=== PATIENT | female | born 1950 | race Caucasian/White ===

== ENCOUNTER → 2017-01-20 | Outpatient (CLI) | payer MEDICARE ==
--- NOTE | 2017-01-20 10:57 | BD ---
EXAMINATION TYPE: MG DEXA axial skeleton. DATE OF EXAM: 01/20/2017 10:48 AM COMPARISON: NONE CLINICAL HISTORY: Height: 65 Weight: 182.5 FRAX RISK QUESTIONS: Alcohol (3 or more units per day): NO Family History (Parent hip fracture): NO Glucocorticoids (More than 3mos): NO (Ex: prednisone, prednisolone, methylprednisolone, dexamethasone, and hydrocortisone). History of Fracture in Adulthood: YES Secondary Osteoporosis: 1. Type 1 Diabetes: NO 2. Hyperthyroidism: NO 3. Menopause before 45: NO 4. Malnutrition: NO 5. Chronic liver disease: NO Rheumatoid Arthritis: NO Current Tobacco Use: NO RISK FACTORS HISTORY OF: Hip Fracture (Right/Left): NO Spine Fracture: NO History of Wrist Fracture: NO Surgery to Spine/Hip(right/left)/Wrist (right/left): NO Family History of Osteoporosis: NO Active: YES Diet low in dairy products/other sources of calcium: YES Postmenopausal woman: AGE 51 Lost more than 2 inches in height since high school: NO Frequent falls: NO Poor Health: NO Adrenal Insufficiency: NO MEDICATIONS: ZESTOROL Thyroid Medications: SYNTHROID How Lon YEARS Additional History: EXAM MEASUREMENTS: Bone mineral densitometry was performed using the [employer] System. Bone mineral density as measured about the Lumbar spine is: ----- L1-L4(G/cm2): 1.086 T Score Values are as follows: ----- L2: -1.1 ----- L3: -0.9 ----- L4: -0.4 ----- L1-L4: -0.8 Bone mineral density has: DECREASED -6.7 % since study of: 05.13.2004 Bone mineral density about the R hip (g/cm2): 0.911 Bone mineral density about the L hip (g/cm2): 0.914 T Score values are as follows: -----R Neck: -0.9 -----L Neck: -0.9 -----R Intertrochanter: -1.9 -----L Intertrochanter: -1.2 Bone mineral density has: DECREASED -9.8 % since study of: 05.13.2004 IMPRESSION: OSTEOPENIA. MAJOR OSTEOPOROTIC FRACTURE RISK: 7.7% HIP FRACTURE RISK: 0.5% NOTE: T-SCORE=SD OF THE YOUNG ADULT MEAN.
--- NOTE | 2017-01-24 08:10 | MM ---
Reason for exam: screening (asymptomatic). Last mammogram was performed 2 years ago. History: Patient is postmenopausal. Family history of breast cancer in aunt. Excisional biopsy of the left breast, 1999. Excisional biopsy of the right breast, 1997. Physical Findings: A clinical breast exam by your physician is recommended on an annual basis and results should be correlated with mammographic findings. MG 3D Screening Mammo W/Cad Bilateral CC and MLO view(s) were taken. Prior study comparison: February 02, 2015, bilateral MG screening mammo w CAD. January 30, 2014, bilateral digital screening mammo w/CAD. January 28, 2013, bilateral digital screening mammo w/CAD. There are scattered fibroglandular densities. No significant changes when compared with prior studies. ASSESSMENT: Negative, BI-RAD 1 RECOMMENDATION: Routine screening mammogram of both breasts in 1 year.
== END | disposition home or self-care (01) ==
LOC: RADMAMWWP 10:00
PROVIDERS: ATTEND Family Medicine
DX: Z12.31 Encounter for screening mammogram for malignant neoplasm of breast (principal); M85.80 Other specified disorders of bone density and structure, unspecified site
CPT/HCPCS: 77080; 77063; G0202

== ENCOUNTER → 2019-03-13 | Outpatient (CLI) | payer MEDICARE ==
--- NOTE | 2019-03-13 07:56 | US ---
EXAMINATION TYPE: US abdomen limited DATE OF EXAM: 03/13/2019 COMPARISON: NONE CLINICAL HISTORY: [id number] ABNORMAL LIVER FUNCTION RESULTS. Abnormal labs. No pain. No previous surgeri es. EXAM MEASUREMENTS: Liver Length: 15.4 cm Gallbladder Wall: 0.1 cm CBD: 0.6 cm CHD: 0.3 cm Right Kidney: 11.9 x 5.2 x 5.7 cm Pancreas: Appears echogenic in appearance Liver: Increased attenuation, decreased visualization of vessels suggestive of fatty infiltrate. Th is finding limits evaluation for hepatic masses although no focal hepatic mass is seen on today's exa m. Gallbladder: multiple mobile echogenic foci Evidence for sonographic Morse's sign: neg CBD: wnl, limited visualization CHD: wnl, limited visualization Right Kidney: Possible mild hydronephrosis IMPRESSION: 1. Hepatic findings most commonly related to hepatic steatosis. Correlate with liver function test re sults. 2. Numerous gallstones with no sonographic evidence of acute cholecystitis.
--- NOTE | 2019-03-13 10:26 | BD ---
EXAMINATION TYPE: Axial Bone Density DATE OF EXAM: 03/13/2019 COMPARISON: 2017 CLINICAL HISTORY: disorder of bone Height: 5' 5 10/10 Weight: 186 FRAX RISK QUESTIONS: History of Fracture in Adulthood: y Secondary Osteoporosis: RISK FACTORS HISTORY OF: Postmenopausal woman: y MEDICATIONS: Thyroid Medications: Which medication: Synthroid How Lon years Additional Medications: high blood pressure Additional History: EXAM MEASUREMENTS: Bone mineral densitometry was performed using the [employer]. Bone mineral density as measured about the Lumbar spine is: ----- L1-L4(G/cm2): 1.085 T Score Values are as follows: ----- L2: -0.9 ----- L3:-0.7 ----- L4:-0.5 ----- L1-L4: -0.8 Bone mineral density has: Increased 0.4% since study of: 01/20/2017 Bone mineral density about the R hip (g/cm2): 0.883 Bone mineral density about the L hip (g/cm2): 0.899 T Score values are as follows: -----R Neck: -1.1 -----L Neck: -1.0 -----R Total: -1.0 -----L Total: -0.7 Bone mineral density has: Increased 2.3% since study of: 01/20/2017 IMPRESSION: Osteopenia (T Score between -2.5 and -1). There is slightly increased risk of fracture and the patient may be considered for treatment. Re-Screen 2-5 years. NOTE: T-SCORE=SD OF THE YOUNG ADULT MEAN.
--- NOTE | 2019-03-14 11:34 | MM ---
Reason for exam: screening (asymptomatic). Last mammogram was performed 2 years and 2 months ago. History: Patient is postmenopausal. Family history of breast cancer in aunt. Excisional biopsy of the left breast, 1999. Excisional biopsy of the right breast, 1997. Physical Findings: A clinical breast exam by your physician is recommended on an annual basis and results should be correlated with mammographic findings. MG Screening Mammo w CAD Bilateral CC and MLO view(s) were taken. Prior study comparison: January 20, 2017, bilateral MG 3d screening mammo w/cad. February 02, 2015, bilateral MG screening mammo w CAD. The breast tissue is heterogeneously dense. This may lower the sensitivity of mammography. No suspicious abnormality. No significant changes when compared with prior studies. ASSESSMENT: Negative, BI-RAD 1 RECOMMENDATION: Routine screening mammogram of both breasts in 1 year.
== END | disposition home or self-care (01) ==
LOC: RADUSWWP 07:15
PROVIDERS: ATTEND Family Medicine
DX: Z12.31 Encounter for screening mammogram for malignant neoplasm of breast (principal); M85.80 Other specified disorders of bone density and structure, unspecified site; K76.0 Fatty (change of) liver, not elsewhere classified; K80.20 Calculus of gallbladder without cholecystitis without obstruction
CPT/HCPCS: 76705; 77067; 77080

== ENCOUNTER → 2021-02-15 | Outpatient (CLI) | payer MEDICARE ==
--- NOTE | 2021-02-17 12:31 | MM ---
Reason for exam: screening (asymptomatic). Last mammogram was performed 1 year and 11 months ago. History: Patient is postmenopausal. Family history of breast cancer in aunt at age 84. Excisional biopsy of the left breast, 1999. Excisional biopsy of the right breast, 1997. Physical Findings: A clinical breast exam by your physician is recommended on an annual basis and results should be correlated with mammographic findings. MG 3D Screening Mammo W/Cad Bilateral CC and MLO view(s) were taken. Prior study comparison: March 13, 2019, bilateral MG screening mammo w CAD. January 20, 2017, bilateral MG 3d screening mammo w/cad. There are scattered fibroglandular densities. No significant changes when compared with prior studies. ASSESSMENT: Benign, BI-RAD 2 RECOMMENDATION: Routine screening mammogram of both breasts in 1 year.
== END | disposition home or self-care (01) ==
LOC: RADMAMWWP 12:41
PROVIDERS: ATTEND Family Medicine
DX: Z12.31 Encounter for screening mammogram for malignant neoplasm of breast (principal); Z78.0 Asymptomatic menopausal state; Z80.3 Family history of malignant neoplasm of breast
CPT/HCPCS: 77063; 77067

== ENCOUNTER 2021-03-18 09:09 | Day surgery (SDC) | payer MEDICARE ==
[2021-03-16 12:25] VITALS: BMI 29.9
[~2021-03-18 09:09] MED LIST: LACTATED RINGERS 1,000 ML IV SCH
[2021-03-18 09:44] VITALS: TEMP 97
[2021-03-18] MEDS ORDERED: LACTATED RINGERS 1,000 ML IV ONE (09:54)
[2021-03-18] MEDS ORDERED: PROPOFOL 10 MG/ML 20 ML VIAL IV ONE (10:20)
--- NOTE | 2021-03-18 10:40 | P.PCN ---
Date of Procedure: 03/18/21 Description of Procedure: BRIEF HISTORY: Patient is a 71-year-old female presenting for outpatient colonoscopy for evaluation of diarrhea. Patient reports intermittent diarrhea prostate 2-3 times per week. She denies any triggers. She is unsure if this is related to her diet. Last colonoscopy was 8 years ago within normal limits per patient recollection PROCEDURE PERFORMED: Colonoscopy with biopsy. PREOPERATIVE DIAGNOSIS: Diarrhea, change in bowel habits, last colonoscopy 8 years ago. ESTIMATED BLOOD LOSS: Minimal. IV sedation per Anesthesia. PROCEDURE: After informed consent was obtained, the patient, was brought into the endoscopy unit. IV sedation was administered by Anesthesia under continuous monitoring. Digital rectal examination was normal. Initially the Olympus CF-190 flexible video colonoscope was then inserted in the rectum, gradually advanced into the cecum without any difficulty. Careful examination was performed as the scope was gradually being withdrawn. Ileocecal valve and the appendiceal orifice were visualized and appeared normal. Prep was excellent. Mucosa of the cecum, ascending colon, transverse colon, descending colon, sigmoid colon, and rectum appeared normal and normal-appearing terminal ileum with biopsies taken of the right colon, left colon and a normal-appearing terminal ileum. Retroflexion was performed in the rectum and no lesions were seen, And with low-grade external hemorrhoids noted. The patient tolerated the procedure well. IMPRESSION: Normal-appearing colon from rectum to cecum and normal-appearing terminal ileum with random biopsies taken of the right colon, left colon and terminal ileum. Internal hemorrhoids. RECOMMENDATIONS: Findings of this examination were discussed with the patient and her family. Okay to resume diet. Okay to resume medications. Await pathology from biopsies. Recommend repeat colonoscopy in 10 years for screening purposes if medically stable at that time.
[2021-03-18 11:04] VITALS: BP 100/78; PULSE 92; RESP 18
== END 2021-03-18 11:13 | disposition home or self-care (01) ==
LOC: ORWHC2ENDO 09:09
PROVIDERS: ATTEND Internal Medicine
DX: R19.7 Diarrhea, unspecified (principal); K64.4 Residual hemorrhoidal skin tags; K64.8 Other hemorrhoids; I10 Essential (primary) hypertension; E07.9 Disorder of thyroid, unspecified; Z98.890 Other specified postprocedural states; Z79.82 Long term (current) use of aspirin; Z79.890 Hormone replacement therapy; Z79.899 Other long term (current) drug therapy
CPT/HCPCS: 88305; 45380; J2704

== ENCOUNTER → 2022-03-11 | Outpatient (CLI) | payer MEDICARE ==
--- NOTE | 2022-03-11 16:18 | BD ---
EXAMINATION TYPE: Axial Bone Density DATE OF EXAM: 03/11/2022 COMPARISON: NONE CLINICAL HISTORY: 72 year old Female. ICD-10 CODE: M85.89 OTH DISRD OF BONE DENSITY Height: 65 Weight: 179.8 FRAX RISK QUESTIONS: Alcohol (3 or more units per day): no Family History (Parent hip fracture): no Glucocorticoids (More than 3mos): no (Ex: prednisone, prednisolone, methylprednisolone, dexamethasone, and hydrocortisone). History of Fracture in Adulthood: yes Secondary Osteoporosis: 1. Type 1 Diabetes: no 2. Hyperthyroidism: no 3. Menopause before 45: no 4. Malnutrition: no 5. Chronic liver disease: no Rheumatoid Arthritis: no Current Tobacco Use: no RISK FACTORS HISTORY OF: Surgery to Spine/Hip(right/left)/Wrist (right/left): no Family History of Osteoporosis: no Active: yes Diet low in dairy products/other sources of calcium: no Postmenopausal woman: yes Lost more than 2 inches in height since high school: no MEDICATIONS: Thyroid Medications: thyroid How Lon years Additional History: EXAM MEASUREMENTS: Bone mineral densitometry was performed using the [employer]. Bone mineral density as measured about the Lumbar spine is: ----- L1-L4(G/cm2): 1.088 T Score Values are as follows: ----- L1: -0.9 ----- L2: -1.1 ----- L3: -1.0 ----- L4: -0.4 ----- L1-L4: -.0.8 Bone mineral density has: decreased-1.1 % since study of: 03.13.2019 Bone mineral density about the R hip (g/cm2): 0.905 Bone mineral density about the L hip (g/cm2): 0.907 T Score values are as follows: -----R Neck: -1.0 -----L Neck: -0.9 -----R Total: -1.1 -----L Total: -0.7 Bone mineral density has: decrease -1.2 % since study of: 03.13.2019 FRAX%s: The graph provided illustrates a 13.7% chance for a major osteoporotic fx and a 1.4% chance f or the hips probability for fx in 10 years time. IMPRESSION: Osteopenia (T Score between -2.5 and -1). There is slightly increased risk of fracture and the patient may be considered for treatment. Re-Screen 2-5 years. NOTE: T-SCORE=SD OF THE YOUNG ADULT MEAN.
--- NOTE | 2022-03-14 11:11 | MM ---
Reason for Exam: Screening (asymptomatic). Last mammogram was performed 1 year(s) and 1 month(s) ago. Patient History: Menarche at age 15. First Full-Term at age 26. Postmenopausal. 1997, Excisional Biopsy on the Right side. 1999, Excisional Biopsy on the Left side. Maternal aunt had breast cancer, age 84. Risk Values: Maria L 5 year model risk: 2.6%. NCI Lifetime model risk: 7.3%. Prior Study Comparison: 01/20/2017 Bilateral Screening Mammogram, [facility]. 03/13/2019 Bilateral Screening Mammogram, [facility]. 02/15/2021 Bilateral Screening Mammogram, [facility]. Tissue Density: There are scattered fibroglandular densities. Findings: Analyzed By CAD. There is no suspicious group of microcalcifications or new suspicious mass in either breast. Benign-appearing calcifications noted. Area of asymmetric density upper outer margin right breast. Additionally there is a new 4 mm nodule in the outer aspect of the right breast. Overall Assessment: Incomplete: need additional imaging evaluation, BI-RAD 0 Management: Special View Mammogram of the right breast. A clinical breast exam by your physician is recommended on an annual basis and results should be correlated with mammographic findings. Electronically signed and approved by: Mian Rodríguez M.D. Radiologis
== END | disposition home or self-care (01) ==
LOC: RADMAMWWP 13:35
PROVIDERS: ATTEND Family Medicine
DX: Z12.31 Encounter for screening mammogram for malignant neoplasm of breast (principal); M85.89 Other specified disorders of bone density and structure, multiple sites; Z78.0 Asymptomatic menopausal state; Z80.3 Family history of malignant neoplasm of breast
CPT/HCPCS: 77063; 77067; 77080

== ENCOUNTER → 2022-03-17 | Outpatient (CLI) | payer MEDICARE ==
--- NOTE | 2022-03-17 15:26 | MM ---
Reason for Exam: Additional evaluation requested from abnormal screening. Last screening mammogram was performed less than 1 month ago. Patient History: Menarche at age 15. First Full-Term at age 26. Postmenopausal. 1997, Excisional Biopsy on the Right side. 1999, Excisional Biopsy on the Left side. Maternal aunt had breast cancer, age 84. Risk Values: Maria L 5 year model risk: 2.6%. NCI Lifetime model risk: 7.3%. Tissue Density: Right: There are scattered fibroglandular densities. Findings: Analyzed By CAD. Postsurgical distortion is in the upper outer aspect right breast were present previously. No underlying architectural distortion spiculated or lobular masses or clustered microcalcifications are evident. There was a oval density posterior to the surgical site. Upon questioning a mole was identified in this region. This was marked and confirms normal on the imaging. No suspicious underlying nodule is evident. Overall Assessment: Benign, BI-RAD 2 Management: Screening Mammogram of both breasts in 1 year. A clinical breast exam by your physician is recommended on an annual basis and results should be correlated with mammographic findings. This exam should not preclude additional follow-up of suspicious palpable abnormalities. Results were given to the patient verbally at the time of exam. Electronically signed and approved by: Dale Alvarez D.O. Radiologis
== END | disposition home or self-care (01) ==
LOC: RADMAMWWP 08:35
PROVIDERS: ATTEND Family Medicine
DX: R92.8 Other abnormal and inconclusive findings on diagnostic imaging of breast (principal); Z78.0 Asymptomatic menopausal state; Z80.3 Family history of malignant neoplasm of breast
CPT/HCPCS: 77065; G0279; 77061

== ENCOUNTER → 2023-03-20 | Outpatient (CLI) | payer MEDICARE ==
--- NOTE | 2023-03-21 14:47 | MM ---
Reason for Exam: Screening (asymptomatic). Last screening mammogram was performed 12 month(s) ago. Patient History: Menarche at age 15. First Full-Term at age 26. Postmenopausal. 1997, Excisional Biopsy on the Right side. 1999, Excisional Biopsy on the Left side. Maternal aunt had breast cancer, age 84. Risk Values: Maria L 5 year model risk: 2.7%. NCI Lifetime model risk: 6.9%. Prior Study Comparison: 02/15/2021 Bilateral Screening Mammogram, [facility]. 03/11/2022 Bilateral MG 3D screening mammo w/cad, [facility]. 03/17/2022 Right MG 3D work up w/cad RT, [facility]. Tissue Density: There are scattered fibroglandular densities. Findings: Analyzed By CAD. There is no suspicious group of microcalcifications or new suspicious mass in either breast. Overall Assessment: Negative, BI-RAD 1 Management: Screening Mammogram of both breasts in 1 year. A clinical breast exam by your physician is recommended on an annual basis and results should be correlated with mammographic findings. Note on Maria L scores and lifetime risk: 1. A Maria L score greater than 3% is considered moderate risk. If this is the case, consider specialist referral to assess eligibility for a risk reducing agent. If overall lifetime risk for the development of breast cancer is 20% or higher, the patient may qualify for future screening with alternating mammogram and breast MRI. Electronically signed and approved by: Billy Villegas D.O.
== END | disposition home or self-care (01) ==
LOC: RADMAMWWP 10:12
PROVIDERS: ATTEND Family Medicine
DX: Z12.31 Encounter for screening mammogram for malignant neoplasm of breast (principal); Z78.0 Asymptomatic menopausal state; Z80.3 Family history of malignant neoplasm of breast
CPT/HCPCS: 77063; 77067

== ENCOUNTER → 2024-03-21 | Outpatient (CLI) | payer MEDICARE ==
--- NOTE | 2024-03-22 12:04 | MM ---
Reason for Exam: Screening (asymptomatic). Last screening mammogram was performed 12 month(s) ago. Patient History: Menarche at age 15. First Full-Term at age 26. Postmenopausal. 1997, Excisional Biopsy on the Right side. 1999, Excisional Biopsy on the Left side. Maternal aunt had breast cancer, age 84. Risk Values: Maria L 5 year model risk: 2.7%. NCI Lifetime model risk: 6.5%. Prior Study Comparison: 03/11/2022 Bilateral MG 3D screening mammo w/cad, [facility]. 03/17/2022 Right MG 3D work up w/cad RT, [facility]. 03/20/2023 Bilateral MG 3D screening mammo w/cad, [facility]. Tissue Density: There are scattered areas of fibroglandular density. Findings: Analyzed By CAD. There is a 4 mm nodule in the lower inner margin left breast not seen on prior exams to small to characterize recommend spot compression view. Area of increased density in the upper margin of the right breast recommend spot compression view. Overall Assessment: Incomplete: need additional imaging evaluation, BI-RAD 0 Management: Diagnostic Mammogram of both breasts. . Patient should continue monthly self-breast exams. A clinical breast exam by your physician is recommended on an annual basis. This exam should not preclude additional follow-up of suspicious palpable abnormalities. Note on Maira L scores and lifetime risk: 1. A Maria L score greater than 3% is considered moderate risk. If this is the case, consider specialist referral to assess eligibility for a risk reducing agent. 2. If overall lifetime risk for the development of breast cancer is 20% or higher, the patient may qualify for future screening with alternating mammogram and breast MRI. Electronically signed and approved by: Mian Rodríguez M.D. Radiologis
== END | disposition home or self-care (01) ==
LOC: RADMAMWWP 08:35
PROVIDERS: ATTEND Family Medicine
DX: Z12.31 Encounter for screening mammogram for malignant neoplasm of breast (principal); Z78.0 Asymptomatic menopausal state; Z80.3 Family history of malignant neoplasm of breast
CPT/HCPCS: 77063; 77067

== ENCOUNTER → 2024-03-27 | Outpatient (CLI) | payer MEDICARE ==
--- NOTE | 2024-03-27 09:34 | MM ---
Reason for Exam: Follow-up at short interval from prior study. Last screening mammogram was performed less than 1 month ago. Patient History: Menarche at age 15. First Full-Term at age 26. Postmenopausal. 1997, Excisional Biopsy on the Right side. 1999, Excisional Biopsy on the Left side. Maternal aunt had breast cancer, age 84. Risk Values: Maria L 5 year model risk: 2.7%. NCI Lifetime model risk: 6.5%. Prior Study Comparison: 03/20/2023 Bilateral MG 3D screening mammo w/cad, [facility]. 03/21/2024 Bilateral MG 3D screening mammo w/cad, [facility]. Tissue Density: There are scattered areas of fibroglandular density. Findings: Analyzed By CAD. Left breast: Nodularity left breast is unchanged dating back to 2020. Right breast: Right breast asymmetric density does not persist with spot compression imaging. Overall Assessment: Benign, BI-RAD 2 Management: Screening Mammogram of both breasts in 1 year. . Results were given to the patient verbally at the time of exam. Patient should continue monthly self-breast exams. A clinical breast exam by your physician is recommended on an annual basis. This exam should not preclude additional follow-up of suspicious palpable abnormalities. Note on Maria L scores and lifetime risk: 1. A Maria L score greater than 3% is considered moderate risk. If this is the case, consider specialist referral to assess eligibility for a risk reducing agent. 2. If overall lifetime risk for the development of breast cancer is 20% or higher, the patient may qualify for future screening with alternating mammogram and breast MRI. Electronically signed and approved by: Chiki Justice M.D. Radiologis
== END | disposition home or self-care (01) ==
LOC: RADMAMWWP 08:58
PROVIDERS: ATTEND Family Medicine
DX: R92.333 Mammographic heterogeneous density, bilateral breasts (principal); Z80.3 Family history of malignant neoplasm of breast; Z78.0 Asymptomatic menopausal state
CPT/HCPCS: 77066; G0279; 77062

== ENCOUNTER → 2025-03-28 | Outpatient (CLI) | payer MEDICARE ==
--- NOTE | 2025-03-28 11:13 | BD ---
EXAMINATION TYPE: Axial Bone Density DATE OF EXAM: 03/28/2025 CLINICAL HISTORY: 75 years old Female. ICD-10 CODE: M85.89 MENOPAUSAL , Additional History: Height: 65 Weight: 156.8 FRAX RISK QUESTIONS: Alcohol (3 or more units per day): no Family History (Parent hip fracture): no Glucocorticoids (More than 3mos): no (Ex: prednisone, prednisolone, methylprednisolone, dexamethasone, and hydrocortisone). History of Fracture in Adulthood: yes Secondary Osteoporosis: 1. Type 1 Diabetes: no 2. Hyperthyroidism: no 3. Menopause before 45: no 4. Malnutrition: no 5. Chronic liver disease: no Rheumatoid Arthritis: no Current Tobacco Use: no RISK FACTORS HISTORY OF: Hip Fracture (Right/Left): no Spine Fracture: no History of Wrist Fracture: no Surgery to Spine/Hip(right/left)/Wrist (right/left): no MEDICATIONS: Thyroid Medications: Synthroid How Long: past 25 years Osteoporosis Medications: no EXAM MEASUREMENTS: Bone mineral densitometry was performed using the [employer] System. Bone mineral density as measured about the Lumbar spine is: ----- L1-L4(G/cm2): 1.065 T Score Values are as follows: ----- L1: -1.7 ----- L2: -1.2 ----- L3: -1.0 ----- L4: -0.3 ----- L1-L4: -1.0 Z Score Values are as follows: ----- L1: -0.2 ----- L2: 0.3 ----- L3: 0.5 ----- L4: 1.2 ----- L1-L4: 0.6 Bone mineral density has: decreased -2.1 % since study of: 03/11/2022 Bone mineral density about the R hip (g/cm2): 0.862 Bone mineral density about the L hip (g/cm2): 0.839 T Score values are as follows: -----R Neck: -0.9 -----L Neck: -1.4 -----R Total: -1.2 -----L Total: -1.3 Z Score values are as follows: -----R Neck: 0.8 -----L Neck: 0.3 -----R Total: 0.4 -----L Total: 0.2 Bone mineral density has: DECREASED -4.7 % since study of: 03/11/2022 FRAX%s: The graph provided illustrates a 16.7% chance for a major osteoporotic fx and a 2.8% chance f or the hips probability for fx in 10 years time. IMPRESSION: Osteopenia (T Score between -2.5 and -1). There is slightly increased risk of fracture and the patient may be considered for treatment. Re-Screen 2-5 years. NOTE: T-SCORE=SD OF THE YOUNG ADULT MEAN. [facility], , 03/28/2025 11:10 AM
--- NOTE | 2025-03-28 18:02 | MM ---
Reason for Exam: Screening (asymptomatic). Last screening mammogram was performed 12 month(s) ago. Patient History: Menarche at age 15. First Full-Term at age 26. Postmenopausal. 1997, Excisional Biopsy on the Right side. 1999, Excisional Biopsy on the Left side. Maternal aunt had breast cancer, age 84. Risk Values: Maria L 5 year model risk: 2.7%. NCI Lifetime model risk: 6.2%. Prior Study Comparison: 03/20/2023 Bilateral MG 3D screening mammo w/cad, [facility]. 03/21/2024 Bilateral MG 3D screening mammo w/cad, [facility]. 03/27/2024 Bilateral MG 3D work up w/cad ELIUD, [facility]. Tissue Density: There are scattered areas of fibroglandular density. Findings: Analyzed By CAD. Chronic nodularity medial left breast. There is no suspicious group of microcalcifications or new suspicious mass in either breast. Overall Assessment: Benign, BI-RAD 2 Management: Screening Mammogram of both breasts in 1 year. Patient should continue monthly self-breast exams. A clinical breast exam by your physician is recommended on an annual basis. This exam should not preclude additional follow-up of suspicious palpable abnormalities. Note on Maria L scores and lifetime risk: 1. A Maria L score greater than 3% is considered moderate risk. If this is the case, consider specialist referral to assess eligibility for a risk reducing agent. 2. If overall lifetime risk for the development of breast cancer is 20% or higher, the patient may qualify for future screening with alternating mammogram and breast MRI. [facility], , 03/28/2025 5:59 PM. Electronically signed and approved by: René Marc M.D. Radiologist
== END | disposition home or self-care (01) ==
LOC: RADMAMWWP 10:03
PROVIDERS: ATTEND Family Medicine
DX: Z12.31 Encounter for screening mammogram for malignant neoplasm of breast (principal); M85.89 Other specified disorders of bone density and structure, multiple sites; R92.323 Mammographic fibroglandular density, bilateral breasts; N63.20 Unspecified lump in the left breast, unspecified quadrant; Z78.0 Asymptomatic menopausal state; Z80.3 Family history of malignant neoplasm of breast
CPT/HCPCS: 77063; 77067; 77080